=== PATIENT | female | born 1970 | race African-American/Black ===

== ENCOUNTER 2019-08-11 19:40 | Emergency (ER) | payer OTHER, SELFPAY ==
--- NOTE | 2019-08-11 19:51 | ED.URI ---
HPI - URI/Sore Throat General Chief Complaint: Upper Respiratory Infection Stated Complaint: Allergies/Eyes/Knee pain Source: patient Mode of arrival: ambulatory Limitations: no limitations History of Present Illness HPI Narrative: Emma Felton is a 49 yo female who comes to the [facility] after a fall a month ago where she has abrasions that have healed on both knees. Fall occurred [facility] on the wet floor. She also has eyes drainage in the morning that is bilateral, she is tried eyedrops that have not controlled her tearing, He Takes Claritin but She Says Claritin and Benadryl have not controlled her allergies Related Data Home Medications Medication Instructions Recorded Confirmed No Home Medications 08/11/19 08/11/19 Allergies Allergy/AdvReac Type Severity Reaction Status Date / Time No Known Allergies Allergy Verified 08/11/19 19:54 Review of Systems Review of Systems: Narrative: CONSTITUTIONAL: Denies fever, chills, sweats. EYES: Denies visual changes, has mild bilateral redness, no discharge. ENT: Denies rhinorrhea, has mild congestion, sore throat, otalgia. CARDIOVASCULAR: Denies chest pain, palpitations, edema. RESPIRATORY: Denies dyspnea, wheezing, cough GASTROINTESTINAL: Denies abdominal pain, nausea, vomiting, diarrhea. GENITOURINARY: Denies dysuria, hematuria, abnormal discharge SKIN: Denies rash or itching. NEUROLOGIC: Denies numbness, or focal weakness. PSYCHIATRIC: Denies anxiety or depression. [facility] Family History Family History (Updated 08/11/19 @ 20:02 by Venus Esposito CNP) Other No active medical problems Social History Social History Smoking status: Never smoker Alcohol intake: current Comments At time of signature, I agree with nursing past medical, surgical, social and family history. There is no relevant family history pertinent to the presenting complaint. Exam Narrative: Exam Narrative: GENERAL: This is a well-nourished, well-developed patient, in no apparent distress. HEAD: normocephalic, atraumatic. EYES: Sclera clear/mild injection bilaterally. vision is grossly intact. EARS: External ears normal, auditory canals clear. Hearing grossly intact. NOSE: External nose normal with no obvious nasal discharge, nares without redness, no rhinorrhea. THROAT: Mucous membranes moist, posterior pharynx mild erythema NECK: Neck supple, non-tender CARDIOVASCULAR: Regular rate and rhythm without murmurs, gallops, or rubs. RESPIRATORY: Clear to auscultation. Breath sounds equal bilaterally. No wheezes, rales, or rhonchi. GASTROINTESTINAL: Abdomen soft, SKIN: warm, intact with no suspicious lesions or rash, good texture and turgor. NEURO: awake, alert, and oriented to person, place and time. There were no obvious focal neurologic abnormalities. Steady gait EXTREMITIES: Normal range of motion. Left healed abrasion on knee right knee has small anshu; able to walk and bend BACK: Nontender without deformity or crepitance. No flank tenderness. Course Course Emergency Course: Started on neomycin eyedrops, Tiara Ibuprofen for her knees Discussed rice for her knees and follow-up with her own primary care doctor Vital Signs Vital signs: Vital Signs Temperature 96.4 F L 08/11/19 19:54 Pulse Rate 82 08/11/19 19:54 Respiratory Rate 16 08/11/19 19:54 Blood Pressure 150/92 H 08/11/19 19:54 Pulse Oximetry 99 08/11/19 19:54 Temperature 96.4 F L 08/11/19 19:54 Pulse Rate 82 08/11/19 19:54 Respiratory Rate 16 08/11/19 19:54 Blood Pressure 150/92 H 08/11/19 19:54 Pulse Oximetry 99 08/11/19 19:54 MDM - URI/Sore Throat Differential Diagnosis Differential diagnosis: Likely upper respiratory infection, viral infection and other (Allergic conjunctivitis, patient needs, conjunctivo-) Discharge Plan Discharge Clinical Impression: Conjunctivitis Qualifiers: Conjunctivitis type: acute A
[2019-08-11 19:54] VITALS: BP 150/92; PULSE 82; RESP 16; TEMP 35.8; O2SAT 99
== END 2019-08-11 20:10 | disposition home or self-care (01) ==
PROVIDERS: Emergency Provider Nurse Practitioner
DX: H10.33 Unspecified acute conjunctivitis, bilateral (principal); T78.40XA Allergy, unspecified, initial encounter; M25.562 Pain in left knee; M25.561 Pain in right knee
CPT/HCPCS: 99203; G0463

== ENCOUNTER 2023-04-20 15:32 | Emergency (ER) | payer OTHER, SELFPAY ==
[2023-04-20 15:46] VITALS: BP 133/87; PULSE 95; RESP 16; TEMP 36.2; O2SAT 99
--- NOTE | 2023-04-20 16:40 | ED.SKABFB ---
HPI - Skin/Abscess/Foreign Bdy General Chief complaint: Skin/Abscess/Foreign Body Stated complaint: irritation right arm Time Seen by Provider: 04/20/23 16:34 Source: patient and RN notes reviewed Mode of arrival: ambulatory Limitations: no limitations History of Present Illness HPI narrative: Patient presents today complaining of pruritic rash to the right arm and right lower leg. She noticed the lesions this morning. She has tried oral Benadryl without relief. She has checked her bed for bedbugs, and this was negative. Related Data Allergies Allergy/AdvReac Type Severity Reaction Status Date / Time No Known Allergies Allergy Verified 04/20/23 15:44 Review of Systems Review of Systems: CONSTITUTIONAL: Denies body aches, fever, chills, or sweats. EYES: Denies visual changes, redness, or discharge. ENT: Denies rhinorrhea, congestion, sore throat, or otalgia. CARDIOVASCULAR: Denies chest pain, palpitations, or edema. RESPIRATORY: Denies cough or dyspnea. GASTROINTESTINAL: Denies abdominal pain, nausea, vomiting, or diarrhea. GENITOURINARY: Denies dysuria or hematuria. SKIN: + pruritic rash MUSCULOSKELETAL: Denies back pain, joint pain, or myalgia. NEUROLOGIC: Denies headache, numbness, tingling, or weakness. PSYCH: Denies depression or anxiety. [facility] Family History Family History Other No active medical problems Social History Social History Smoking status: Never smoker Alcohol intake: current Comments At time of signature, I have reviewed and agree with nursing past medical, surgical, social and family history unless otherwise noted. Please see nursing chart for further information. There is no relevant family history pertinent to the presenting complaint Exam Narrative: GENERAL: Well-appearing, well-nourished, and in no acute distress. HEAD: Normocephalic, atraumatic. EYES: EOMI. No redness or drainage. Conjunctivae normal. ENT: Mucous membranes pink and moist. NECK: Normal AROM. CHEST: No respiratory distress. EXTREMITIES: Normal range of motion. No edema. SKIN: Warm, dry. Capillary refill normal. Normal skin turgor. Three or 4 large urticarial lesions with puncture wounds in the center to the right arm, and 1 to the right lower leg, consistent with insect bites NEURO: No focal deficits. Alert and oriented x3. Gait steady. PSYCH: Normal affect. No signs of depression or anxiety. Course Course Level of Care: Express Care Visit Vital Signs Vital signs: Vital Signs Temperature 97.2 F L 04/20/23 15:46 Pulse Rate 95 04/20/23 15:46 Respiratory Rate 16 04/20/23 15:46 Blood Pressure 133/87 04/20/23 15:46 Pulse Oximetry 99 04/20/23 15:46 Oxygen Delivery Room Air 04/20/23 15:46 Temperature 97.2 F L 04/20/23 15:46 Pulse Rate 95 04/20/23 15:46 Respiratory Rate 16 04/20/23 15:46 Blood Pressure 133/87 04/20/23 15:46 Pulse Oximetry 99 04/20/23 15:46 Oxygen Delivery Room Air 04/20/23 15:46 Reviewed MDM - Skin/Abscess/Foreign Bdy MDM Narrative Medical decision making narrative: Exam consistent with insect bites with allergic reaction. Will treat with topical triamcinolone. No testing indicated at this time. Anticipatory guidance given. Differential Diagnosis Differential diagnosis: Likely urticaria, cellulitis, insect bites and contact dermatitis Critical Care Time Critical Care Time Critical Care Time: No Discharge Plan Discharge Clinical Impression: Allergic reaction to insect bite Patient Disposition: Home, Self-Care Condition: Stable Instructions: Insect Bite or Sting (ED) Additional Instructions: Please use the triamcinolone as directed. Do not put it on your face or in your genital region. Use an antihistamine such as Benadryl, Zyrtec, Claritin, or Tiara for itching. Follow-up with your PCP in
== END 2023-04-20 16:44 | disposition home or self-care (01) ==
PROVIDERS: Emergency Provider Nurse Practitioner
DX: S40.861A Insect bite (nonvenomous) of right upper arm, initial encounter (principal); S80.861A Insect bite (nonvenomous), right lower leg, initial encounter; W57.XXXA Bitten or stung by nonvenomous insect and other nonvenomous arthropods, initial encounter
CPT/HCPCS: 99213; G0463

== ENCOUNTER 2023-12-05 18:59 | Emergency (ER) | payer OTHER, SELFPAY ==
--- NOTE | ~2023-12-05 | XR_ITS ---
EXAMINATION: XR hand RT min 3V DATE: 12/05/2023 19:33 INDICATION: Tenderness at the base of the right thumb. Fall. TECHNIQUE: 3 views of right hand were obtained. COMPARISON: None. FINDINGS: Bone alignment is normal. No fracture. There is mild osteoarthritis of first metacarpal edgar nt and second-fifth distal interphalangeal joints. IMPRESSION: 1. Mild polyarticular osteoarthritis. Reviewed, dictated and finalized at location E.
[2023-12-05 19:10] VITALS: BP 155/93; PULSE 85; RESP 16; TEMP 35.9; O2SAT 99
--- NOTE | 2023-12-05 19:22 | ED.EXTPRO ---
HPI - Extremity Problem General Chief complaint: Extremity Problem,Nontraumatic Stated complaint: right hand/wrist sore, right thumb clicking Time Seen by Provider: 12/05/23 19:22 Source: patient, RN notes reviewed and old records reviewed Mode of arrival: ambulatory Limitations: no limitations History of Present Illness HPI Narrative: The patient presents with complaints of pain to right wrist and hand. She reports that she fell earlier this week and cough itself with her outstretched hand. Since then she has had pain mostly to the base of the thumb. She reports clicking sensation to the thumb joint. She denies other injury and trauma. She tried to take Tylenol and ibuprofen for her symptoms, but she said she was not going to continue to do so because it does not help. She does retain full range of motion to the affected hand. No other complaints today Related Data Allergies Allergy/AdvReac Type Severity Reaction Status Date / Time No Known Allergies Allergy Verified 12/05/23 19:38 Review of Systems Review of Systems: All systems reviewed & are unremarkable except as noted in HPI and below Constitutional: Constitutional: Reports no additional constitutional complaints ENT: Reports system reviewed and no additional complaints, except as documented Cardiovascular: Cardiovascular: Reports no additional cardiovascular complaints Respiratory: Respiratory: Reports no additional respiratory complaints Gastrointestinal: Gastrointestinal: Reports no additional gastrointestinal complaints Musculoskeletal: Musculoskeletal: Reports as per HPI, Denies deformity and Reports arthralgias (right thumb) Integumentary/Breasts: Skin/Breast: Reports system reviewed and no additional complaints, except as docu [facility] Family History Family History Other No active medical problems Social History Social History Smoking status: Never smoker Alcohol intake: current Comments At the time of my signature, I reviewed and agree with the nursing past medical, surgical, social, and family history. There is no relevant family history pertinent to the patient complaint. Exam Const: General: cooperative, no acute distress, alert and awake Orientation/consciousness: oriented to person, oriented to place and oriented to time HENMT: Head: normal to inspection Resp: Effort & Inspection: normal respiratory effort and able to speak in complete sentences Auscultation: clear to auscultation bilaterally, no crackles, no rales, no rhonchi and no wheezes Cardio: Palpation: normal PMI Rate: regular rate Rhythm: regular rhythm Heart sounds: S1 normal heart sound present and S2 normal heart sound present Neuro: General: oriented to person, oriented to place and oriented to time Cranial nerves: Yes CN's II-XII intact bilaterally Extrem: Other: Mild swelling to the base of the right thumb. DIP joint exam consistent with trigger finger. She does retain full range of motion. Psych: Appearance: grossly normal Thought process: Normal thought process present Insight: Good insight present (Psych) Judgement: Good judgement present (Psych) Course Course Level of Care: Express Care Visit Vital Signs Vital signs: Vital Signs Temperature 96.7 F L 12/05/23 19:10 Pulse Rate 85 12/05/23 19:10 Respiratory Rate 16 12/05/23 19:10 Blood Pressure 155/93 H 12/05/23 19:10 Pulse Oximetry 99 12/05/23 19:10 Oxygen Delivery Room Air 12/05/23 19:10 Temperature 96.7 F L 12/05/23 19:10 Pulse Rate 85 12/05/23 19:10 Respiratory Rate 16 12/05/23 19:10 Blood Pressure 155/93 H 12/05/23 19:10 Pulse Oximetry 99 12/05/23 19:10 Oxygen Delivery Room Air 12/05/23 19:10 Reviewed MDM - Extremity (Nontraumatic) MDM Narrative Medical decision making narrative: Mild swelling noted to the base of the thumb. X
== END 2023-12-05 19:54 | disposition home or self-care (01) ==
PROVIDERS: Emergency Provider Nurse Practitioner Family
DX: R03.0 Elevated blood-pressure reading, without diagnosis of hypertension (principal); M25.541 Pain in joints of right hand; M65.311 Trigger thumb, right thumb
CPT/HCPCS: 73130; 99213; G0463

== ENCOUNTER 2024-03-23 19:20 | Emergency (ER) | payer OTHER, SELFPAY ==
[2024-03-23 19:22] VITALS: BP 155/92; PULSE 84; RESP 18; TEMP 36.8; O2SAT 99
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
== END 2024-03-23 20:20 | disposition home or self-care (01) ==
PROVIDERS: Emergency Provider Nurse Practitioner Family
DX: G50.1 Atypical facial pain (principal)
CPT/HCPCS: 99212; G0463